=== PATIENT | female | born 1955 | race African-American/Black ===

== ENCOUNTER 2016-12-24 22:26 | Emergency (ER) | payer MEDICARE ==
[~2016-12-24] VITALS: Ht 165.1 cm; Wt 88.2 kg
[~2016-12-24 22:26] MED LIST: CLON0.1T PO; ENAL20TA PO; HYDR25TA6 PO; METF500T9 PO; PRAV20TA2 PO
[2016-12-24 22:27] VITALS: BP 141/85
[2016-12-24] MEDS ORDERED: PRED10TA14 PO (23:23)
[2016-12-24] MEDS ORDERED: CLIN300C93 PO (23:23)
[2016-12-24 23:33] LABS: BLOOD UREA NITROGEN 23 mg/dL (7-18)
== END 2016-12-25 00:13 | disposition home or self-care (01) ==
LOC: ED 12-25 00:05
DX: J20.9 Acute bronchitis, unspecified (principal); J32.9 Chronic sinusitis, unspecified; J31.0 Chronic rhinitis; I10 Essential (primary) hypertension; E11.9 Type 2 diabetes mellitus without complications
CPT/HCPCS: 36415; 71020; 80048; 82040; 85025; 93005; 99285

== ENCOUNTER → 2017-04-27 | Outpatient (CLI) | payer MEDICARE ==
[~2017-04-27] MED LIST changes: +CLIN300C8 PO; +PRED10TA14 PO
== END | disposition home or self-care (01) ==
LOC: CFH 08:33
PROVIDERS: ATTEND Family Medicine
DX: Z12.31 Encounter for screening mammogram for malignant neoplasm of breast (principal); N64.89 Other specified disorders of breast
CPT/HCPCS: G0202

== ENCOUNTER → 2017-05-28 | Outpatient (CLI) | payer MEDICARE | END | disposition home or self-care (01) | LOC: CFH 11:41 | PROVIDERS: ATTEND Family Medicine | DX: R92.2 Inconclusive mammogram (principal) | CPT/HCPCS: G0206-LT ==

== ENCOUNTER → 2018-06-01 | Outpatient (CLI) | payer MEDICARE | END | disposition home or self-care (01) | LOC: CFH 14:43 | PROVIDERS: ATTEND Student in an Organized Health Care Education/Training Program | DX: Z12.31 Encounter for screening mammogram for malignant neoplasm of breast (principal) | CPT/HCPCS: 77067 ==

== ENCOUNTER 2020-12-04 22:30 | Emergency (ER) | payer MEDICARE ==
[~2020-12-04] VITALS: Ht 165.1 cm; Wt 84.7 kg
[~2020-12-04 22:30] MED LIST changes: -CLIN300C8 PO; +CLIN300C9 PO; -CLON0.1T PO; +CLON0.1T22 PO; -ENAL20TA PO; +ENAL20TA9 PO; +METF-754 PO; -METF500T9 PO
[2020-12-04 22:44] VITALS: BP 176/86
== END 2020-12-04 23:40 | disposition left against medical advice (07) ==
LOC: ED 23:20
DX: I10 Essential (primary) hypertension (principal); Z53.21 Procedure and treatment not carried out due to patient leaving prior to being seen by health care provider